=== PATIENT | female | born 1960 | race Caucasian/White ===

== ENCOUNTER 2016-08-28 23:43 | Emergency (ER) | payer OTHER ==
[2016-08-29 03:50] LABS: HEMOGLOBIN 12.1 gm/dl (12.3-15.3); RED BLOOD COUNT 3.99 M/UL (4.00-5.10); WHITE BLOOD COUNT 7.7 K/UL (4.5-11.0)
[2016-08-29 04:48] LABS: BUN/CREATININE RATIO 18 (0-10)
[2016-08-29 08:41] LABS: BUN/CREATININE RATIO 15 (0-10)
== END 2016-08-29 09:10 | disposition home or self-care (01) ==
LOC: ER1 23:43
PROVIDERS: Physician Assistant
DX: I10 Essential (primary) hypertension (principal); E87.1 Hypo-osmolality and hyponatremia; F17.210 Nicotine dependence, cigarettes, uncomplicated
CPT/HCPCS: 36415; 70450; 71010; 80048; 80053; 82550; 82553; 83735; 83874; 84439; 84443; 84484; 85025; 93005; 96361; 96374; 99284; J2405